=== PATIENT | female | born 1985 | race Hispanic/Latino ===

== ENCOUNTER 2016-08-23 13:12 | Emergency (ER) | payer OTHER ==
[~2016-08-23] VITALS: Ht 162.6 cm; Wt 113.4 kg
[~2016-08-23 13:12] MED LIST: LEVSIN-SL0.125 MG SL; NAPROSYN500 M1 PO; PEPCID20 M1 PO; ZOFRAN ODT4 M1 SL
[2016-08-23 14:40] VITALS: BP 129/84
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
[2016-08-23] MEDS ORDERED: CYCLOBENZAPRINE5 M2 PO (17:29)
[2016-08-23] MEDS ORDERED: IBUPROFEN800 M1 PO (17:29)
== END 2016-08-23 17:36 ==
LOC: ERH 13:12
DX: S29.012A Strain of muscle and tendon of back wall of thorax, initial encounter (principal); V49.50XA Passenger injured in collision with unspecified motor vehicles in traffic accident, initial encounter; Y92.481 Parking lot as the place of occurrence of the external cause

== ENCOUNTER 2017-07-11 16:06 | Inpatient (IN) | payer OTHER ==
[~2017-07-11] VITALS: Ht 162.6 cm; Wt 113.4 kg
[~2017-07-11 16:06] MED LIST changes: +CYCLOBENZAPRINE5 M2 PO; +IBUPROFEN800 M1 PO
[2017-07-11 16:53] LABS: ABSOLUTE BASOPHIL COUNT 0.1 /CUMM (0.0-0.2); ABSOLUTE EOSINOPHIL COUNT 0 /CUMM (0.0-0.7); ABSOLUTE GRANULOCYTE CT 6.6 /CUMM (1.4-6.5); ABSOLUTE LYMPH COUNT 2.2 /CUMM (1.2-3.4); ABSOLUTE MONOCYTE COUNT 0.5 /CUMM (0.10-0.60); BASOPHIL % 0.6 % (0.0-2.0); EOSINOPHIL % 0.5 % (0-5); GRANULOCYTE % 70.1 % (42.2-75.2); MEAN CORPUSCULAR HGB 20.5 PG (27.0-31.0); MEAN CORPUSCULAR HGB CONC 28.7 G/DL (33.0-37.0); MEAN CORPUSCULAR VOLUME 71.7 FL (81.0-99.0); MEAN PLATELET VOLUME 10.9 FL (7.4-10.4); PLATELET COUNT 238 /CUMM (130-400); RBC DISTRIBUTION WIDTH 16.1 % (11.5-14.5); RED BLOOD CELL CT 4.75 /CUMM (4.20-5.40); WHITE BLOOD CELL COUNT 9.4 /CUMM (4.8-10.8)
--- NOTE | 2017-07-11 20:37 | History & Physical Pre-Op ---
General Information and HPI MD Statement: I have seen and personally examined BEATA HUITRON and documented this H&P. The patient is a 31 year old F who presented with a patient stated chief complaint of elevated blood pressure the patient's normal blood pressure 110 oh 60 today's visit patient admittedly did not feel well she denied headaches complaint of swelling in the right upper quadrant pain and had elevated blood pressure 140/90. Patient sent to the childbirth center for evaluation fascia pH labs which are unremarkable except some proteinuria urine with some ketones this will be repeated []. History of Present Illness: 31-year-old 2 para 1001 at 38-6/7 weeks gestation with elevated blood pressure Allergies/Medications Allergies: Coded Allergies: No Known Allergies (12/06/16) Home Med list Cyclobenzaprine HCl 5 MG TABLET 1 TAB PO TIDPRN PRN pain Ibuprofen 800 MG TABLET 1 TAB PO TID PRN pain Ondansetron (Zofran Odt) 4 MG TAB.RAPDIS 1 TAB SL TID PRN nausea Past History Medical History Neurological: NONE EENT: NONE Cardiovascular: NONE Respiratory: asthma Gastrointestinal: NONE Hepatic: NONE Renal: NONE Musculoskeletal: NONE Psychiatric: NONE Endocrine: NONE Blood Disorders: NONE Cancer(s): NONE 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 Surgical History Pertinent Surgical History: non-contributory Review of Systems Review of Systems: She denies any visual changes she complains of swelling she denies GI complaints complains of back pain Exam & Diagnostic Data Last 24 Hrs of Vital Signs/I&O Blood pressure ranges from 150/82-140/97 Physical Exam: Well-built female HEENT anicteric glasses with tape Lungs clear Heart S1 and S2 Abdomen gravid negative right upper quadrant tenderness Cervix is 2-3 cm 80 mid position soft Extremities +3 edema reflexes +2 Physical Exam General Appearance Alert Skin No Rashes Assessment/Plan As Ranked By This Provider Problem List: 1.
--- NOTE | 2017-07-12 02:10 | Labor & Delivery Summary ---
Delivery Summary Vaginal Delivery: Vaginal: vertex Episiotomy/Lacerations: Type: 2ND DEGREE Repair: 3 0 Anesthesia: LOCAL Placenta: Placenta: spontanteous, normal, 3 vessel, nuchal cord (x_) (1) Anesthesia: NITROUS OXIDE Additional Comments: WITH SINGLE PUSH AFTER SROM CLEAR.CANX1 REDUCIBLE OVER 2ND DEGREE LACERATION .PLACENTA BY CCT INTACT.3 VESSEL CORD .2ND DEGREE REPAIRED IN LAYERS WITH 30 .RECTUM AND CERVIX FREE OF SUTURES AFTER DELIVERY. O +
[2017-07-12 06:42] LABS: ABSOLUTE BASOPHIL COUNT 0 /CUMM (0.0-0.2); ABSOLUTE EOSINOPHIL COUNT 0 /CUMM (0.0-0.7); ABSOLUTE GRANULOCYTE CT 10.9 /CUMM (1.4-6.5); ABSOLUTE LYMPH COUNT 1.5 /CUMM (1.2-3.4); ABSOLUTE MONOCYTE COUNT 0.6 /CUMM (0.10-0.60); BASOPHIL % 0.1 % (0.0-2.0); EOSINOPHIL % 0.2 % (0-5); GRANULOCYTE % 83.6 % (42.2-75.2); MEAN CORPUSCULAR VOLUME 71.8 FL (81.0-99.0); MEAN PLATELET VOLUME 11.9 FL (7.4-10.4); PLATELET COUNT 178 /CUMM (130-400); RBC DISTRIBUTION WIDTH 15.6 % (11.5-14.5); RED BLOOD CELL CT 3.96 /CUMM (4.20-5.40); WHITE BLOOD CELL COUNT 13.1 /CUMM (4.8-10.8)
[2017-07-12 06:50] LABS: HEMATOCRIT 28.4 % (37-47); MEAN CORPUSCULAR HGB 23.2 PG (27.0-31.0); MEAN CORPUSCULAR HGB CONC 32.3 G/DL (33.0-37.0)
[2017-07-12 06:54] LABS: PTT 25 SEC (25-37)
--- NOTE | 2017-07-13 09:12 | PN- Post Delivery/GYN ---
Subjective Subjective: No complaint of headaches visual changes Objective Last 24 Hrs of Vital Signs/I&O Vital Signs Date Time Temp Pulse Resp B/P B/P Pulse O2 O2 Flow FiO2 Mean Ox Delivery Rate 07/12 0957 154/94 Physical Exam: Well-built female HEENT anicteric Abdomen soft nontender Fundus firm nontender Lochia minimal Extremities +2 edema +1 reflexes negative Homans Assessment/Plan Assessment/Plan Stephanie status post normal spontaneous vaginal delivery with -induced hypertension the plan is for labetalol 100 by mouth twice a day continue care
[2017-07-13 09:17] LABS: ABSOLUTE BASOPHIL COUNT 0.1 /CUMM (0.0-0.2); ABSOLUTE EOSINOPHIL COUNT 0.3 /CUMM (0.0-0.7); ABSOLUTE LYMPH COUNT 2.6 /CUMM (1.2-3.4); ABSOLUTE MONOCYTE COUNT 0.6 /CUMM (0.10-0.60); BASOPHIL % 0.6 % (0.0-2.0); EOSINOPHIL % 2.6 % (0-5); GRANULOCYTE % 66.4 % (42.2-75.2); HEMATOCRIT 28.2 % (37-47); MEAN CORPUSCULAR HGB 22.9 PG (27.0-31.0); MEAN CORPUSCULAR HGB CONC 31.8 G/DL (33.0-37.0); MEAN CORPUSCULAR VOLUME 71.9 FL (81.0-99.0); MEAN PLATELET VOLUME 11.2 FL (7.4-10.4); PLATELET COUNT 206 /CUMM (130-400); RBC DISTRIBUTION WIDTH 16.3 % (11.5-14.5); RED BLOOD CELL CT 3.92 /CUMM (4.20-5.40); WHITE BLOOD CELL COUNT 10.5 /CUMM (4.8-10.8)
[2017-07-13] MEDS ORDERED: LABETALOL HCL100 M1 PO (15:36)
[2017-07-13] MEDS ORDERED: IBUPROFEN800 M1 PO (15:36)
[2017-07-14 10:06] VITALS: BP 140/82
== END 2017-07-14 13:30 | DRG 560 ==
LOC: CBCO 16:06 → GNO 17:46
PROVIDERS: Specialist
PROC: 0KQM0ZZ Repair Perineum Muscle, Open Approach (ICD-10-PCS; principal; 2017-07-11)
PROC: 10E0XZZ Delivery of Products of Conception, External Approach (ICD-10-PCS; principal; 2017-07-11)
DX: O70.1 Second degree perineal laceration during delivery (principal); O13.4 Gestational [pregnancy-induced] hypertension without significant proteinuria, complicating childbirth; O69.81X0 Labor and delivery complicated by cord around neck, without compression, not applicable or unspecified; Z3A.38 38 weeks gestation of pregnancy; Z37.0 Single live birth
CPT/HCPCS: GNOP; GNOS; 36415; 81001; 87389; 88307; J7120